=== PATIENT | female | born 1975 | race Caucasian/White ===

== ENCOUNTER 2024-10-18 21:17 | Emergency (ER) | payer OTHER ==
[~2024-10-18] VITALS: Ht 165.1 cm; Wt 74.8 kg
[2024-10-18] MEDS ORDERED: ACETAMINOPHEN 325 MG TAB PO ONE (21:25)
[2024-10-18] MEDS ORDERED: Cyclobenzaprine Hydrochlorid 10 MG TAB PO ONE (23:25)
== END 2024-10-18 23:27 | disposition home or self-care (01) ==
LOC: ED 21:17
DX: M54.2 Cervicalgia (principal); M25.511 Pain in right shoulder; R68.84 Jaw pain; Z88.0 Allergy status to penicillin; Z91.013 Allergy to seafood; V49.59XA Passenger injured in collision with other motor vehicles in traffic accident, initial encounter; Y93.89 Activity, other specified; Y92.488 Other paved roadways as the place of occurrence of the external cause; Y99.8 Other external cause status